=== PATIENT | female | born 1990 ===

== ENCOUNTER 2017-10-22 10:40 | Emergency (ER) | payer OTHER ==
[2017-10-22 10:51] VITALS: BP 101/68; PULSE 67; RESP 20; TEMP 98.7; O2SAT 100
--- NOTE | 2017-10-22 11:07 | C.PDOC ---
History Of Present Illness 27 year old female presents to the ED c/o left ankle pain and swelling after a fall today. Patient states she was going down the stairs when she slipped, twisted her left ankle/leg. She denies other injuries, LOC, headache, blurry vision, extremity weakness, sensory changes. Time Seen by Provider: 10/22/17 10:41 Chief Complaint (Nursing): Lower Extremity Problem/Injury History Per: Patient History/Exam Limitations: no limitations Onset/Duration Of Symptoms: Hrs Current Symptoms Are (Timing): Still Present Severity: Moderate Additional History Per: Patient - Ankle/Foot Description Of Injury: Fell, Twisted Currently Unable To: Bend Or Move Past Medical History Reviewed: Historical Data, Nursing Documentation, Vital Signs Vital Signs: Last Vital Signs Temp 98.7 F 10/22/17 10:48 Pulse 67 10/22/17 10:48 Resp 20 10/22/17 10:48 BP 101/68 10/22/17 10:48 Pulse Ox 100 10/22/17 12:19 - Medical History PMH: No Chronic Diseases Surgical History: No Surg Hx Family History: States: No Known Family Hx - Social History Hx Alcohol Use: No Hx Substance Use: No - Immunization History Hx Tetanus Toxoid Vaccination: No Hx Influenza Vaccination: Yes Hx Pneumococcal Vaccination: No Review Of Systems Constitutional: Negative for: Fever, Chills Cardiovascular: Negative for: Chest Pain, Palpitations Respiratory: Negative for: Shortness of Breath Gastrointestinal: Negative for: Nausea, Vomiting Musculoskeletal: Positive for: Leg Pain, Foot Pain Skin: Negative for: Rash Neurological: Negative for: Weakness, Numbness, Headache Physical Exam - Physical Exam Appears: Well, Non-toxic, In Acute Distress (in mild pain ) Skin: Normal Color, Warm, Dry Head: Atraumatic, Normacephalic Eye(s): bilateral: Normal Inspection Oral Mucosa: Moist Neck: Supple Cardiovascular: Rhythm Regular Respiratory: Normal Breath Sounds, No Rales, No Rhonchi, No Wheezing Back: Normal Inspection, No CVA Tenderness, No Vertebral Tenderness, No Paraspinal Tenderness Extremity: Tenderness ((+) TTP at lateral distal lower leg and lateral malleolus ), Capillary Refill (< 2 seconds all digits ), No Deformity, Swelling (mild swelling left distal leg) Pulses: Left Dorsalis Pedis: Normal, Right Dorsalis Pedis: Normal Neurological/Psych: Oriented x3, Normal Sensation ED Course And Treatment O2 Sat by Pulse Oximetry: 100 (ON RA) Pulse Ox Interpretation: Normal - Other Rad Left Knee X-Ray X-Ray: Read By Radiologist Interpretation: PROCEDURE: Left Knee Radiographs. HISTORY: Pain. COMPARISON : None. FINDINGS: BONES: Normal. No fracture. JOINTS: Normal. No osteoarthritis. JOINT EFFUSION: None. OTHER FINDINGS: None. IMPRESSION: Normal radiographs of the left knee. Left Ankle X-Ray X-Ray: Read By Radiologist Interpretation: PROCEDURE: Left Ankle Radiographs. HISTORY: left ankle pain after fall. COMPARISON: None. FINDINGS: BONES: Oblique fracture distal left fibula. Major fracture fragments are anatomically aligned. JOINTS: Normal. No osteoarthritis. Ankle mortise maintained. Talar dome intact. SOFT TISSUES: Normal. OTHER FINDINGS: None. IMPRESSION: Acute distal fibular fracture above the ankle mortise. Progress Note: Plan: Patient given PO Tylenol. Xrays of left ankle and left knee ordered and reviewed. Xray of ankle shows nondisplaced distal fibula fx. Patient placed in posterior splint by ED tecj and checked by me, (+) NV intact. Crutches and instruction given by PT. Patient given Rx for pain medication and instructed to follow up [facility] orthopedics/podiatry within 1 week. She understands she should return to ED if she develops any concerning symptoms. Reassessment Condition: Improved Disposition Counseled Patient/Family Regarding: Studies Performed, Diagnosis, Need For Followup, Rx Given - Disposition Referrals: [facility] [place] [Outside] Podiatry Clinic [Outside] David Mike MD [Staff Provider] - Disposition: HOME/ ROUTINE Disposition Time: 12:00 Condition: STABLE Additional Instructions: FOLLOW UP WITH ORTHOPEDICS OR PODIATRY WITHIN 1 WEEK USE MEDICATIONS NEEDED RETURN TO EMERGENCY ROOM SYMPTOMS WORSEN SEGUIMIENTO CON ORTOPEDIA O PODOLOGA DENTRO DE 1 SEMANA USE MEDICAMENTOS SEGN SEA NECESARIO VOLVER A [place] DE EMERGENCIA WORSEN Prescriptions: Acetaminophen with Codeine [Tylenol with Codeine #3 Tablet] 1 each PO Q6 PRN # 15 tablet PRN Reason: pain Instructions: Fibula Fracture (DC) Forms: [facility] (Kiswahili) Print Language: SOUTH SUDANESE - POA Present On Arrival: None - Clinical Impression Clinical Impression: Fracture of left distal radius - Scribe Statement The provider has reviewed the documentation as recorded by the Scribe Jake Reyes All medical record entries made by the Scribe were at my direction and personally dictated by me. I have reviewed the chart and agree that the record accurately reflects my personal performance of the history, physical exam, medical decision making, and the department course for this patient. I have also personally directed, reviewed, and agree with the discharge instructions and disposition.
--- NOTE | 2017-10-22 11:58 | RAD ---
PROCEDURE: Left Ankle Radiographs. HISTORY: left ankle pain after fall COMPARISON: None FINDINGS: BONES: Oblique fracture distal left fibula. Major fracture fragments are anatomically aligned. JOINTS: Normal. No osteoarthritis. Ankle mortise maintained. Talar dome intact SOFT TISSUES: Normal. OTHER FINDINGS: None. IMPRESSION: Acute distal fibular fracture above the ankle mortise.
--- NOTE | 2017-10-22 11:58 | RAD ---
PROCEDURE: Left Knee Radiographs. HISTORY: Pain. COMPARISON: None. FINDINGS: BONES: Normal. No fracture. JOINTS: Normal. No osteoarthritis. JOINT EFFUSION: None. OTHER FINDINGS: None. IMPRESSION: Normal radiographs of the left knee.
== END 2017-10-22 12:18 | disposition home or self-care (01) ==
LOC: C.ER 10:40
DX: S52.502A Unspecified fracture of the lower end of left radius, initial encounter for closed fracture (principal); W10.9XXA Fall (on) (from) unspecified stairs and steps, initial encounter
CPT/HCPCS: 73562; 73610; 97116; 97161; 99285; G8978; G8979; G8980